=== PATIENT | female | born 1990 | race Caucasian/White ===

== ENCOUNTER 2022-04-17 10:45 | Outpatient (CLI) | payer BC, MEDICAID, SELFPAY ==
[2022-04-17 10:45] VITALS: BMI 27.0
[2022-04-17 11:02] VITALS: BP 122/80; PULSE 108
[2022-04-17 11:11] VITALS: RESP 17
--- NOTE | 2022-04-17 11:11 | US_ITS ---
WS: [id number] BIOPHYSICAL PROFILE AMNIOTIC FLUID HISTORY: decreased movement COMPARISON: 11/26/2021. Cardiac activity: 150 bpm. Cervix: closed. Placenta: Posterior, no previa or abruption. Placenta grade: 3 Parameters are as follows: Breathin Movement: 2 Tone: 2 Fluid volume: 2 Amniotic fluid index: 7.4 cm. Largest vertical pocket 3.2 cm. US/US OB BPP wo NST 94859 IMPRESSION: 1. Biophysical profile score: 8/8. 2. Amniotic fluid index at the 5th percentile for age. 3. Grade 3 placenta. Dyeing Machine Back Tender discussed the fluid volume with patient's nurse at the time of exam .
[2022-04-17 11:18] VITALS: BP 117/74; PULSE 97
[2022-04-17 11:33] VITALS: BP 119/67; PULSE 85
== END 2022-04-17 12:29 | disposition home or self-care (01) ==
LOC: OPOB 10:50 → OBGYN 10:51
PROVIDERS: Visit Provider Family Medicine
DX: O36.8190 Decreased fetal movements, unspecified trimester, not applicable or unspecified (principal); Z3A.00 Weeks of gestation of pregnancy not specified
CPT/HCPCS: 59025; 76819; 99211

== ENCOUNTER 2022-04-21 04:50 | Inpatient (IN) | payer BC, MEDICAID, SELFPAY ==
[2022-04-21] VITALS (21 sets, daily range): BP systolic 90–130; BP diastolic 53–76; PULSE 68–114; RESP 16–18; TEMP 36.2–36.7; BMI 28.5
--- NOTE | 2022-04-21 05:08 | PC.NURSE ---
Patient presented to OB department at 0450am on 04/21/2022 and was placed in a room by ST [facility]. ST [facility] alerted nursing staff of patient arrival and probable labor. JAZMINE Kaba; JAZMINE Lombardi and JAZMINE Dougherty immediately presented to OB4 where patient was standing at bedside leaning over bedside table grimacing in pain with her standing behind her. JAZMINE Kaba asked patient if she was able to get into the bed and patient initially stated that she was not. JAZMINE Kaba donned a sterile gloved with gel and requested permission from patient to perform SVE while patient stood at bedside to assess. Patient declines and proceeds to climb into the bed and lay on her right side lifting her left leg into the air. JAZMINE Kaba is able to perform SVE at this time and patient is found to be 10/100/+2. JAZMINE Lombardi attempted to place monitors on patient at this time but patient refusing monitors. With encouragement from staff and patient's the patient does agree to monitoring of FHTs. JAZMINE Dougherty is sent out of room to call Dr Reynolds for delivery, JAZMINE Lombardi gathered IV supplied and JAZMINE Kaba remained at bedside coaching patient through pain and attempting to ask questions regarding patient history. Patient refused IV insertion, refused bleed medications including routine pitocin unless emergent. Bulging perineum and visible presenting part noted at 0500 with a large crown remaining at 0502. JAZMINE Kaba encouraging patient to breathe through contractions and attempting to adjust FHT ultrasound, patient smacking RN's hand away multiple times. Baby's head delivered at 0507 and the first cry is heard. No nuchal cord noted, mother encouraged to push to deliver baby's shoulders and body. Mother states Not yet. I will. With next contraction baby delivers in FREYA position and is immediately placed on prewarmed blanket in mother's arms. Dr Reynolds arrived in patient room at 0510 and patient was set up in leg stirrups for delivery of placenta and assessment by physician.
--- NOTE | 2022-04-21 05:32 | PM.HP ---
Providers/Chief Complaint Admitting Physician: Gatito Reynolds MD Primary Care Provider: Myke Castillo Chief Complaint: labor History of Present Illness Yue Nash is a 31 year old G5 now P4 at 41.0 weeks gestation who is a patient of Dr. Castillo. Her is complicated by Rh-, rubella nonimmune. The patient presented to labor and delivery in active labor. She stated that she started having contractions at 3:00 on 04/21/2022. Her water broke at approximately 4:15 AM. She arrived at labor and delivery triage at 4:50 AM on 04/21/2022. She was complete at that time. She denies any chest pains, shortness of breath, nausea, vomiting, diarrhea, constipation. Medications/Allergies Home Medications Medication Instructions Recorded Confirmed Last Taken Type vit no.133-ferrous 1 tab PO DAILY 04/17/22 04/17/22 04/16/22 History fumarate 28 mg-folic acid 800 mcg tablet () Vitals/I&O/Wt Last Vital Signs Pulse 96 04/21/22 05:23 BP 127/59 04/21/22 05:23 Physical Exam Narrative: General: Alert and oriented x3 Eyes: Pupils equal round and reactive to light and accommodation Mouth: Mucous membranes moist, pharynx non-erythematous Cardiac: Regular rate and rhythm without murmurs Lungs: Clear to auscultation bilaterally without wheezes, crackles or rhonchi Abdomen: Soft, non-tender, fundus firm and 2 cm below the umbilicus. Extremities: Trace edema in the bilateral lower extremities A&P Assessment and plan (1) Rubella non-immune status, antepartum: Status: Acute (2) Rh negative status during : Status: Acute (3) Intrauterine : Status: Acute Plan Upon my arrival, the patient had already delivered. Please see labor delivery note for details. Attestations Medical Necessity Statement*: The patient will be here for greater than 2 midnights due to routine intrapartum and management of labor and delivery. Coding Level of Care Code Acute Customer Advisor Specialist for Chg Fwd Diagnoses Rubella non-immune status, antepartum O09.899; Z28.39 Rh negative status during O26.899; Z67.91 Intrauterine Z34.90
--- NOTE | 2022-04-21 05:38 | PM.DELIVERY ---
Delivery Note: Date of delivery: April 21, 2022 Pre-delivery diagnoses: 1. Intrauterine at 41.0 weeks gestation 2. Rh- 3. Rubella nonimmune 4. Patient refusing all medications and most interventions Post-delivery diagnoses: 1. Intrauterine status post precipitous spontaneous vaginal delivery at 41.0 weeks gestation 2. Rh- 3. Rubella nonimmune 4. Patient refusing all medications and most interventions 5. Delivery of healthy male with Apgars of 8 and 9 Procedure: Spontaneous vaginal delivery Delivering Physician: Gatito Reynolds MD Estimated blood loss (mL): 200 Pre-Delivery Course: Yue is a 31-year-old G4 now P3 at 41.0 weeks gestation and is a patient of Dr. Castillo. Her is complicated by Rh- status, rubella nonimmune, refusing multiple interventions. The patient began having contractions at approximately 3 AM on 04/21/2022. The patient noticed spontaneous rupture of membranes at approximately 4:15 AM on 04/21/2022. The patient arrived to labor and delivery at 4:50 AM. I was called at 4:53 AM. At that time the patient was noted to be complete. The patient delivered on her side with nursing staff at 5:08 AM. Nursing staff noted that the patient pushed the head out, then did not want to push further, however the were able to encourage her to do so. I arrived shortly after delivery of the at approximately 5:10 AM. The patient was noted to be on her side at that time holding her in her arms with the umbilical cord still attached. There was a steady stream of bleeding, so the patient was set up and the umbilical cord was clamped by myself and cut by the 's father. Cord blood was obtained. The cord was then drained of blood and traction was placed on the umbilical cord. The placenta delivered without complication by myself at 5:16 AM on 04/21/2022. The placenta was noted to be intact with a central umbilical cord insertion site. The uterus was then massaged and noted to be firm and midline. The patient refused an IV as well as Pitocin. The cervix was inspected and no lacerations were noted. The vaginal wall was inspected and no lacerations were noted. I encouraged the patient to reconsider getting an IV and getting IV Pitocin to help decrease bleeding. She declined. She did state that if her bleeding increased significantly that she would be okay with medications for this. We will watch her bleeding closely. Currently both the mother and infant are doing well. History History History 4 Term 3 Miscarriages/Ectopic Living Children 3 A&P Assessment and plan (1) Rubella non-immune status, antepartum: Status: Acute (2) Rh negative status during : Status: Acute (3) Intrauterine : Status: Acute Coding Level of Care Code Acute Yard Goods Salesperson for Chg Fwd Diagnoses Rubella non-immune status, antepartum O09.899; Z28.39 Rh negative status during O26.899; Z67.91 Intrauterine Z34.90
[2022-04-21] MEDS: docusate sodium 100 mg Capsule PO ×2 (08:42→19:44)
[2022-04-21] MEDS: ibuprofen 800 mg tablet PO ×3 (08:42→20:59)
[2022-04-21] MEDS: prenatal vitamin Capsule 1 CAP PO (08:42)
[2022-04-21] MEDS: HYDROcodone-acetaminophen 5-325 mg Tablet PO ×2 (13:57→20:59)
[2022-04-21 17:42] LABS: Hematocrit 31.6 % (37.0-47.0); Hemoglobin 11.2 g/dL (11.5-15.3); Mean Corpuscular HGB Conc 35.4 g/dL (30.0-36.0); Mean Corpuscular Hemoglobin 31.1 pg (28.0-34.0); Mean Corpuscular Volume 87.8 fl (81-99); Mean Platelet Volume 9.8 fL (7.4-10.4); Platelet Count 243 10^3/cmm (130-400); Red Cell Distribution Width 13.4 % (12.1-15.1)
[2022-04-21] MEDS: benzocaine-menthol 78 gm Canister 1 SPRAY TOPICAL (19:52)
[2022-04-21] MEDS: lanolin oint 7 gm 1 APPLIC TOPICAL (19:52)
[2022-04-22] VITALS (7 sets, daily range): BP systolic 93–134; BP diastolic 52–72; PULSE 76–102; RESP 16; TEMP 35.9–36.8
[2022-04-22] MEDS: docusate sodium 100 mg Capsule PO (09:14)
[2022-04-22] MEDS: ibuprofen 800 mg tablet PO (09:14)
[2022-04-22] MEDS: prenatal vitamin Capsule 1 CAP PO (09:14)
--- NOTE | 2022-04-22 09:44 | PM.DCS ---
Discharge Providers Date of Admission: 04/21/22 04:50 Date of Discharge: April 22, 2022 Attending Provider at Admission: Gatito Reynolds MD Attending Provider at Discharge: Gatito Reynolds MD Diagnoses at Discharge Discharge Diagnosis (1) Rubella non-immune status, antepartum: Status: Acute (2) Rh negative status during : Status: Acute (3) Intrauterine : Status: Acute Other Information Additional DC diagnoses/information: 1.? Intrauterine status post precipitous spontaneous vaginal delivery at 41.0 weeks gestation 2.? Rh- 3.? Rubella nonimmune 4.? Patient refusing all medications and most interventions 5.? Delivery of healthy male with Apgars of 8 and 9? Reason for Visit Reason for Visit: labor Brief History: Yue is a 31-year-old G4 now P3 at 41.0 weeks gestation and is a patient of Dr. Castillo.? Her is complicated by Rh- status, rubella nonimmune, refusing multiple interventions. Hospital Course Hospital Course The patient began having contractions at approximately 3 AM on 04/21/2022.? The patient noticed spontaneous rupture of membranes at approximately 4:15 AM on 04/21/2022.? The patient arrived to labor and delivery at 4:50 AM.? I was called at 4:53 AM.? At that time the patient was noted to be complete.? The patient delivered on her side with nursing staff at 5:08 AM.? Nursing staff noted that the patient pushed the head out, then did not want to push further, however the were able to encourage her to do so.? I arrived shortly after delivery of the infant at approximately 5:10 AM.? The patient was noted to be on her side at that time holding her in her arms with the umbilical cord still attached.? There was a steady stream of bleeding, so the patient was set up and the umbilical cord was clamped by myself and cut by the 's father.? Cord blood was obtained.? The cord was then drained of blood and traction was placed on the umbilical cord.? The placenta delivered without complication by myself at 5:16 AM on 04/21/2022.? The placenta was noted to be intact with a central umbilical cord insertion site.? The uterus was then massaged and noted to be firm and midline.? The patient refused an IV as well as Pitocin.? The cervix was inspected and no lacerations were noted.? The vaginal wall was inspected and no lacerations were noted.? The patient has done well without complications. Her bleeding is decreasing well. She is ambulating, voiding, passing gas and tolerating food by mouth. Her pain is well controlled. We will plan to discharge her home at this time and follow-up with Dr. Castillo at 6 weeks or sooner if needed. All questions were answered. Physical Exam Narrative: General: Alert and oriented x3 Cardiac: Regular rate and rhythm without murmurs Lungs: Clear to auscultation bilaterally without wheezes, crackles or rhonchi Abdomen: Soft, mild tenderness over uterus. The uterus is firm and 2 cm below the umbilicus. Extremities: Trace edema in the bilateral lower extremities Discharge Data Studies Completed and Pending Laboratory Results WBC 14.0 10^3/uL (4.0-10.0) H 04/21/22 17:30 RBC 3.60 10^6/uL (4.1-5.3) L 04/21/22 17:30 Hgb 11.2 g/dL (11.5-15.3) L 04/21/22 17:30 Hct 31.6 % (37.0-47.0) L 04/21/22 17:30 MCV 87.8 fl (81-99) 04/21/22 17:30 MCH 31.1 pg (28.0-34.0) 04/21/22 17:30 MCHC 35.4 g/dL (30.0-36.0) 04/21/22 17:30 RDW 13.4 % (12.1-15.1) 04/21/22 17:30 Plt Count 243 10^3/cmm (130-400) 04/21/22 17:30 MPV 9.8 fL (7.4-10.4) 04/21/22 17:30 Vitals Last Vital Signs Temp 96.6 F L 04/22/22 05:27 Pulse 86 04/22/22 09:16 Resp 16 04/22/22 05:00 BP 131/64 04/22/22 09:16 Discharge Plan Discharge Patient Disposition: Home Condition: Good Prescriptions: New ferrous sulfate 325 mg (65 mg iron) tablet 325 mg PO DAILY Qty: 14 0RF ibuprofen 800 mg Tablet 800 mg PO TID Qty: 30 0RF Continued 28-800 mg-mcg Tablet 1 tab PO DAILY 0RF Discharge Orders: Discharge Order (Routine); Ordered 04/22/22 Ordered By: Gatito Reynolds Referrals: Myke Castillo MD [Physician] - 6 Weeks Discharge Diet: Regular Discharge Activity: Increase activity as tolerated Patient Instructions: Depression (DC), Bleeding (DC), Preeclampsia and Eclampsia After Delivery (GEN), Vaginal Delivery (DC), OB Discharge Report, OB Food/Drug Interaction Guide, Opioid Safety, OB Home Care, OB [facility] Parent Packet Activity Restrictions/Additional Instructions: Nothing per vagina for 6 weeks. I recommend showers over bathing for the first 6 weeks. Discharge Attestations Time Spent in Discharge Care*: less than 30 min Quality Metrics Clinical Quality Measures [ No reported AMI, CVA or VTE this stay] Coding Level of Care Code Acute Chg FW DC note Diagnoses Rubella non-immune status, antepartum O09.899; Z28.39 Rh negative status during O26.899; Z67.91 Intrauterine Z34.90
== END 2022-04-22 10:55 | disposition home or self-care (01) | DRG 807 ==
LOC: OPOB 04:50 → OBGYN 06:39
PROVIDERS: Admitting Provider Family Medicine; Visit Provider Family Medicine
DX: O48.0 Post-term pregnancy (principal); Z37.0 Single live birth; Z3A.41 41 weeks gestation of pregnancy; O42.02 Full-term premature rupture of membranes, onset of labor within 24 hours of rupture; Z67.91 Unspecified blood type, Rh negative; O62.3 Precipitate labor
CPT/HCPCS: 36415; 59409; 85027; 99211